=== PATIENT | female | born 1960 | race Caucasian/White ===

== ENCOUNTER 2018-03-20 13:13 | Inpatient (IN) | payer OTHER ==
[~2018-03-20] VITALS: Ht 162.6 cm; Wt 65.0 kg
[~2018-03-20 13:13] MED LIST: ADVAIR 250/501 DISK IH; BRINTELLIX10 MG PO; GABAPENTIN300 MG PO; METHADONE HCL40 MG PO; PROAIR HFA8.5 GM IH; PROTONIX40 MG PO; PROVENTIL,2.5 MG/3 M IH; SEROQUEL100 MG PO; SEROQUEL400 MG PO; SEROQUEL50 MG PO; SLEEP AID25 M1 PO; TRAZODONE HCL150 MG PO; VITAMIN B COMP1 EACH PO; ZOLOFT100 MG PO
[2018-03-20 14:05] LABS: BASOPHIL (%) 0.1 % (0-1); EOSINOPHIL (%) 0 % (0-5); HEMATOCRIT 40.7 % (36.0-46.0); HEMOGLOBIN 14.2 G/DL (11.9-15.5); IMMATURE GRANULOCYTE (%) 0.9 % (0.0-0.7); LYMPHOCYTE (%) 4.7 % (15-42); LYMPHOCYTE COUNT 0.8 K/uL (1.0-2.8); MCHC 34.9 G/DL (30.0-36.0); MCV 91.7 FL (83-99); MONOCYTE COUNT 0.4 K/uL (0-0.8); NEUTROPHIL (%) 92.3 % (45-76); NEUTROPHIL COUNT 16.4 K/uL (1.8-6.4); PLATELET COUNT 261 K/uL (156-360); RBC DIS.WIDTH-CV 12.8 % (11.8-14.6); RBC DIS.WIDTH-SD 43.1 % (39-53); RED BLOOD COUNT 4.44 M/uL (3.80-5.20); WHITE BLOOD COUNT 17.8 K/uL (4.1-10.2)
[2018-03-20 14:14] LABS: ALBUMIN 3.8 g/dL (3.2-4.8); CHLORIDE 105 mEq/L (99-109); POTASSIUM 4.3 mEq/L (3.7-5.4); SODIUM 140 mEq/L (136-147)
[2018-03-20 14:15] LABS: MAGNESIUM 1.9 mg/dL (1.3-2.7)
[2018-03-20 14:16] LABS: GLUCOSE 139 mg/dL (70-99); TOTAL PROTEIN 7.6 g/dL (6.4-8.3)
[2018-03-20 14:18] LABS: TOTAL BILIRUBIN 0.3 mg/dL (0.0-1.0)
[2018-03-20 14:20] LABS: ALKALINE PHOSPHATASE 86 IU/L (3-129); GFR ESTIMATE (CALCULATED) > 59 mL/min/
[2018-03-20 14:21] LABS: UREA NITROGEN (BUN) 22 mg/dL (9-23)
[2018-03-20 14:22] LABS: AST (GOT) 32 IU/L (2-34)
[2018-03-20 14:23] LABS: ALT (GPT) 13 IU/L (3-49)
[2018-03-20 14:26] LABS: TROP-I INTERPRETATION NEGATIVE; TROPONIN-I < 0.01 ng/mL (0.0-0.30)
[2018-03-20 18:36] VITALS: BP 150/79
[2018-03-20 19:01] VITALS: BP 158/78
[2018-03-20 22:50] VITALS: BP 148/81
[2018-03-21 03:12] LABS: BASOPHIL (%) 0.3 % (0-1); EOSINOPHIL (%) 0 % (0-5); HEMATOCRIT 35.1 % (36.0-46.0); HEMOGLOBIN 12.3 G/DL (11.9-15.5); IMMATURE GRANULOCYTE (%) 1.8 % (0.0-0.7); LYMPHOCYTE (%) 7.7 % (15-42); LYMPHOCYTE COUNT 1.2 K/uL (1.0-2.8); MCH 31.9 PG (29.0-34.0); MCV 90.9 FL (83-99); MONOCYTE COUNT 0.5 K/uL (0-0.8); NEUTROPHIL (%) 87.2 % (45-76); NEUTROPHIL COUNT 13.4 K/uL (1.8-6.4); PLATELET COUNT 227 K/uL (156-360); RBC DIS.WIDTH-CV 12.9 % (11.8-14.6); RBC DIS.WIDTH-SD 42.6 % (39-53); RED BLOOD COUNT 3.86 M/uL (3.80-5.20); WHITE BLOOD COUNT 15.4 K/uL (4.1-10.2)
[2018-03-21 03:35] LABS: CHLORIDE 112 mEq/L (99-109); POTASSIUM 4.6 mEq/L (3.7-5.4); SODIUM 141 mEq/L (136-147)
[2018-03-21 03:37] LABS: GLUCOSE 117 mg/dL (70-99)
[2018-03-21 03:41] LABS: CREATININE 0.8 mg/dL (0.6-1.3); GFR ESTIMATE (CALCULATED) > 59 mL/min/
[2018-03-21 03:42] LABS: UREA NITROGEN (BUN) 19 mg/dL (9-23)
[2018-03-21 04:17] VITALS: BP 172/79
[2018-03-21 06:07] VITALS: BP 140/90
[2018-03-21 07:41] VITALS: BP 160/80
[2018-03-21 10:59] VITALS: BP 174/91
[2018-03-21] MEDS ORDERED: OXCARBAZEPINE600 MG PO (12:39)
[2018-03-21] MEDS ORDERED: ADVAIR 250/501 DISK IH (12:39)
[2018-03-21] MEDS ORDERED: VENTOLIN HFA18 GM IH (12:39)
[2018-03-21] MEDS ORDERED: QUETIAPINE FUM400 MG PO (12:39)
[2018-03-21] MEDS ORDERED: LYRICA150 MG PO (12:41)
[2018-03-21] MEDS ORDERED: MOBIC15 MG PO (12:41)
[2018-03-21] MEDS ORDERED: METHADONE1 MG/1 ML PO (12:42)
[2018-03-21] MEDS ORDERED: SOMA350 MG PO (12:45)
[2018-03-21] MEDS ORDERED: PROTONIX40 MG PO (15:03)
[2018-03-21 15:06] VITALS: BP 172/91
[2018-03-21 20:18] VITALS: BP 142/80
[2018-03-22 07:20] VITALS: BP 168/85
[2018-03-22 11:14] VITALS: BP 164/87
[2018-03-22 17:13] VITALS: BP 168/92
[2018-03-22 20:04] VITALS: BP 164/90
[2018-03-23 01:13] VITALS: BP 141/86
[2018-03-23 04:53] VITALS: BP 157/77
[2018-03-23 07:00] VITALS: BP 175/94
[2018-03-23 09:30] VITALS: BP 164/98
[2018-03-23 11:06] VITALS: BP 165/89
[2018-03-23] MEDS ORDERED: AUGMENTIN875 MG PO (12:03)
[2018-03-23] MEDS ORDERED: NICOTINE PATCH1 EAC1 TD (12:03)
[2018-03-23] MEDS ORDERED: BENZONATATE100 MG PO (12:04)
[2018-03-23] MEDS ORDERED: PREDNISONE20 MG PO (12:05)
== END 2018-03-23 13:25 | disposition home or self-care (01) | DRG 189 ==
LOC: EME 13:13 → EDOF 15:20 → 5EAST 15:20 → ENRESERV 15:27 → 5EAST 18:02 → ENPENDDIS 03-23 → 5EAST 03-23 13:25
PROVIDERS: Emergency Medicine; Hospitalist
DX: J96.01 Acute respiratory failure with hypoxia (principal); J13 Pneumonia due to Streptococcus pneumoniae; F11.20 Opioid dependence, uncomplicated; F41.9 Anxiety disorder, unspecified; E87.2 Acidosis; J44.0 Chronic obstructive pulmonary disease with (acute) lower respiratory infection; G89.29 Other chronic pain; F17.210 Nicotine dependence, cigarettes, uncomplicated; K21.9 Gastro-esophageal reflux disease without esophagitis; Z85.42 Personal history of malignant neoplasm of other parts of uterus; Z90.710 Acquired absence of both cervix and uterus; Z79.51 Long term (current) use of inhaled steroids; Z82.3 Family history of stroke; Z82.49 Family history of ischemic heart disease and other diseases of the circulatory system; Z83.3 Family history of diabetes mellitus; Z80.9 Family history of malignant neoplasm, unspecified
CPT/HCPCS: 71046; 80048; 80053; 83605; 83735; 84484; 85025; 87040; 87070; 87205; 87449; 93005; 94640; 94640 76; 94799; 99202; 99281; 99285; J0295; J0360; J0456; J0696; J1650; J2920; J2930; J3475; J7030; J7050